=== PATIENT | female | born 1950 | race Caucasian/White ===

== ENCOUNTER → 2017-05-14 | Outpatient (CLI) | payer BC, OTHER ==
[~2017-05-14] MED LIST: ALLER-TEC D 5-1 EACH PO; ALPHA LIPOIC A100 MG PO; ALPHA LIPOIC A600 M1 PO; AMBIEN 5 MG TABL5 M1 PO; AROMASIN25 MG PO; ATROVENT HFA14 GM INH; CELEXA20 MG PO; CENTRUM SILVER1 EAC4 PO; CITRACAL + BON1 EACH PO; CYMBALTA60 MG PO; FISH OIL 1,2001 EAC5 PO; FOLIC ACID1 MG PO; GLUCOSAMINE-CH1 EAC3 PO; HYDROCODONE-AP1 EAC6 PO; IBUPROFEN 800800 M1 PO; NOLVADEX20 MG PO; VALIUM5 MG PO; VITAMIN D1000 UNI1 PO; XANAX 0.5 MG0.5 MG PO; [UNRECOGNIZED DRUG - OTHER]
== END ==
LOC: OCCUP 02-05 00:11 → EDSTATUS 02-05 13:00 → NUC 05:49
DX: M85.89 Other specified disorders of bone density and structure, multiple sites (principal); C50.412 Malignant neoplasm of upper-outer quadrant of left female breast; Z78.0 Asymptomatic menopausal state

== ENCOUNTER → 2018-02-21 | Outpatient (CLI) | payer OTHER | LOC: MRI 11:48 | DX: M65.871 Other synovitis and tenosynovitis, right ankle and foot (principal); R60.0 Localized edema ==

== ENCOUNTER → 2018-05-08 | Outpatient (CLI) | payer OTHER | LOC: RAD 01:39 | DX: C50.412 Malignant neoplasm of upper-outer quadrant of left female breast (principal); M81.0 Age-related osteoporosis without current pathological fracture; M85.89 Other specified disorders of bone density and structure, multiple sites; E28.39 Other primary ovarian failure; Z78.0 Asymptomatic menopausal state; Z17.0 Estrogen receptor positive status [ER+] ==

== ENCOUNTER → 2018-07-09 | Outpatient (CLI) | payer OTHER, SELFPAY ==
[~2018-07-09] VITALS: Ht 165.1 cm; Wt 72.6 kg
[~2018-07-09] MED LIST changes: +BIOTIN1 MG PO; +COQ-10100 MG PO; +D3 DOTS2000 UNIT PO; +FOLTX TABLET1 EAC1 PO; +LYRICA 75 MG CA75 MG PO; +MAGNESIUM500 MG PO; +MEDROLDOSEPACK PO; +MOBIC15 MG PO; +TURMERIC1 GM PO; +XIIDRA1 EACH
[2018-07-09 13:25] VITALS: BP 121/79
--- NOTE | 2018-07-16 10:49 | HPC ---
[facility] [place] [address] PAIN MANAGEMENT CONSULTATION Name: MARIEL SALES Room #: REG [facility] Taras.#: [id number] Admission: 07/09/18 ������������������ Attend Phys: Anoop Kerr DO Discharge: ������������������ Date of : 46 Report #: [id number] THIS REPORT FOR: //name// CC: Ajay Connor DPM DATE OF SERVICE: 07/09/2018 CHIEF COMPLAINT: Right ankle pain. HISTORY OF PRESENT ILLNESS: As you know, the patient is a 67-year-old female with longstanding history of right ankle pain that began in 09/2017. She states she has been treated for various conditions involving the right ankle. She has undergone treatment by 2 different podiatrists. She has had walking boots, CAM boots, medication management and physical therapy, all of which have provided no improvement in symptoms. She does have a history of peripheral neuropathy, though this appears to be related more to a mechanical issue. Her pain is worsened with walking, standing and any type of weightbearing. When she has been more sedentary her pain significantly improved after 2-3 days of being off her feet. Unfortunately, her job requires her to be standing for long periods of time. She works as a caterer. Due to lack of improvement with more conservative treatment options, the patient was referred to our clinic to discuss potential therapies. She has not sought evaluation through Orthopedics in regards to orthopedic surgical options. She does carry the diagnosis of sprain of the talofibular ligament on the right ankle. The patient indicates today her pain is continuous, constant, intermittent in its presentation. She describes the pain as burning, shooting, aching, sharp, stabbing, and tender. She places current pain score at 6/10, daily average of 6/10, worst pain has been is 10/10. The patient states the pain is exacerbated with standing long periods of time and walking long distances, improves with sitting down, rest, relaxation and putting her feet up. She has been referred to our clinic to discuss whether or not there are any interventional treatments available to address right ankle pain. PAST MEDICAL HISTORY: 1. Multiple emotional problems. 2. Degenerative joint disease. 3. Osteoarthritis. 4. History of breast cancer, status post mastectomy. PAST SURGICAL HISTORY: 1. In 2007, lumpectomy. 2. Chemo radiation. 3. Mastectomy with Port-A-Cath placement. [address] [address] PAIN MANAGEMENT CONSULTATION Name: MARIEL SALES Room #: REG Kojo Chanel#: [id number] Admission: 07/09/18 ������������������ Attend Phys: Anoop Kerr DO Discharge: ������������������ Date of : 46 Report #: [id number] 4. Varicose vein surgery. SOCIAL HISTORY: The patient denies tobacco, IV or illicit drug use. Admits to occasional alcohol beverage. She works as a caterer. She is working, not receiving Workmen's Compensation nor is she trying to obtain disability benefits. She is not in litigation in regard to pain. She is unaccompanied today. REVIEW OF SYSTEMS: Positive for weakness, dry eyes, changes in bowel movements, frequent urination, nocturia, breast pain, varicose veins, numbness and tingling sensations, nervousness, depression, cold intolerance, peripheral neuropathy and right ankle pain. All other review of systems negative per 12-point review of systems other than those listed in history of present illness. Pain impact score 68/70 indicating complete interference of daily activities secondary to pain. ALLERGIES: No reported drug allergies. CURRENT MEDICATIONS: Zolpidem 10 mg p.o. at bedtime and diazepam 10 mg t.i.d. IMAGING: There is no imaging available. PHYSICAL EXAMINATION: GENERAL: Well-developed, well-nourished, well-hydrated 67-year-old female appearing her stated age, placing current pain score anywhere from 8-10/10. HEENT: Normocephalic, atraumatic. Pupils equal, round, reactive to light. Extraocular muscles are intact. Sclerae nonicteric without injection. NEUROLOGIC: Cranial nerves 2-12 grossly intact. Speech fluent. The patient deemed a fair historian. LUNGS: Clear, no wheeze, rhonchi or rales. CARDIOVASCULAR: Regular. No appreciable gallop, no rub. ABDOMEN: Soft, nontender. EXTREMITIES: Show no clubbing, no cyanosis, and no edema. MUSCULOSKELETAL: Lower extremity strength appears symmetrical 5/5. Giveaway strength noted with plantar flexion, dorsiflexion of the right foot when compared to left. Eversion and inversion of the foot is met with increased pain on the right lateral portion. Drawer tests are negative bilaterally. There does not appear to be any instability with inversion or eversion of the right ankle when compared to left. There is no tenderness over the Achilles tendon. The distal tactile sensation is reduced slightly in the toes, though there is good capillary refill. ASSESSMENT: 1. Right ankle pain. 2. Right sprain of the talofibular ligament. [facility] [address] [place] [address] PAIN MANAGEMENT CONSULTATION Name: MARIEL SALES Room #: REG ALEN Chanel#: [id number] Admission: 07/09/18 ������������������ Attend Phys: Anoop Kerr DO Discharge: ������������������ Date of : 46 Report #: [id number] 3. Chronic intractable pain. PLAN: 1. Based on today's physical exam and history the patient provided, the description the patient used in regard to pain as well as the inability to ambulate and stand for long periods of time, likely source of the patient's pain is the lateral malleolus. Imaging does show manifestations of anterior distal tibial fibula syndesmotic ligament injury and chronic osseous remodeling and reactive edema along the margins of the distal tibia and fibula. There is no stress fracture or acute ligamentous injuries noted. This was gained from an MRI obtained from the patient 02/21/2018. This does correlate with patient's current findings. We have suggested to the patient that she trialed conservative medication therapy initially with starting a Medrol Dosepak. If this is effective, then symptoms are more likely related to joint issue than to a neuropathic issue. We would recommend a Medrol Dosepak initially. If this is ineffective, then I would recommend follow up with Orthopedic Surgery in regard to surgical options. There is no interventional treatment that would be effective in this area without possibly causing the stabilization of the ligamentous structures in the area, which is noted with a steroid exposure. 2. The patient was provided a prescription of Medrol Dosepak 1 pack to be taken as directed. We wish to see if this will improve the patient's overall pain. If no improvement is noted, this would indicate that she is not steroid responsive and thus options for stabilization will be necessary. Given the length of time the patient has had the symptoms I feel that evaluation from an orthopedic standpoint would be recommended. She has sought evaluation from 2 different podiatrists both of which indicated a different diagnoses and assessment led to fairly significant confusion in the patient's mind and I believe a third independent democrat evaluation would be recommended. I do recommend an orthopedic consultation with a foot and ankle specialist. This could be done at the patient's earliest convenience. 3. In regard to longstanding pain medications, I do not feel that it is necessary for the patient to be on high dose medications of any type nor is there an indication for opioid medication in this case. I recommend that the patient utilize alto-hvf-plaplwh antiinflammatories, either Tylenol or combination of Tylenol and ibuprofen. Interventional treatments again are not indicated in this patient's case. 4. We wish to thank Dr. Connor for the referral of this patient to our clinic. We will keep you apprised of response to the treatment options that may be possible though given current physical exam, interventional treatments are not required. I believe that further evaluation from a third democrat independent physician would be recommended in this patient's case. Certainly, she can follow up with Dr. Connor in regard to this if she wishes. [address] [address] PAIN MANAGEMENT CONSULTATION Name: MÓNICAMARIEL Chanda Room #: REG Kojo Chanel#: [id number] Admission: 07/09/18 ������������������ Attend Phys: Anoop Kerr DO Discharge: ������������������ Date of : 46 Report #: [id number] 5. We will see the patient back in followup visit on an as needed basis. We will keep you apprised of any other changes deemed necessary to treat. ��������������������������������������������� <ELECTRONICALLY SIGNED> ���������������������������������������� By: Anoop Kerr DO ��������������������������������������������� 07/16/18 1049 0817 0914 Anoop Kerr DO /nt
== END ==
LOC: PAIN 07:25
DX: M19.071 Primary osteoarthritis, right ankle and foot (principal); Z85.3 Personal history of malignant neoplasm of breast; Z90.10 Acquired absence of unspecified breast and nipple

== ENCOUNTER 2018-12-11 18:52 | Emergency (ER) | payer OTHER ==
[~2018-12-11] VITALS: Ht 165.1 cm; Wt 70.3 kg
[2018-12-11 19:42] LABS: BASOPHILS 0.7 % (0.0-2.0); EOSINOPHILS 2.7 % (0.0-3.0); HEMATOCRIT 39.2 % (37.0-47.0); LYMPHOCYTES 29.9 % (24.0-44.0); MCH 29.7 pg (26.0-34.0); MCHC 33.1 g/dL (28.0-37.0); MCV 89.8 fL (80.0-100.0); MONOCYTES 10.1 % (1.0-8.0); PLATELET COUNT 247 thou/uL (150-400); POLYS 56.6 % (36.0-66.0); RBC 4.37 mil/uL (4.20-5.00); RDW 13.8 % (10.5-14.5)
[2018-12-11 19:50] LABS: ANION GAP 10 mmol/L (7-16); BUN 16 mg/dL (7-18); CALCIUM 10.7 mg/dL (8.5-10.1); CHLORIDE 99 mmol/L (98-107); CO2 29 mmol/L (21-32); CREATININE 0.8 mg/dL (0.6-1.0); GLUCOSE 83 mg/dL (74-106); POTASSIUM 3.7 mmol/L (3.5-5.1); SODIUM 138 mmol/L (136-145)
[2018-12-11 20:00] LABS: DIRECT BILIRUBIN < 0.1 mg/dL (<0.1-0.3); SGOT 21 U/L (15-37); SGPT 15 U/L (30-65); TOTAL BILIRUBIN 0.4 mg/dL (<0.1-1.0); TROPONIN-I <0.06 ng/mL (<0.06)
[2018-12-11] MEDS ORDERED: INDOMETHACIN 5050 M1 PO (20:31)
[2018-12-12 01:25] VITALS: BP 125/69
--- NOTE | 2018-12-13 12:17 | EKG ---
[place] [address] [employer] [place] [address] ELECTROCARDIOGRAM REPORT Name: MARIEL SALES [facility] [id number] Admission: 12/11/18 Attend Phys: Discharge: 12/12/18 Date of : 46 Report #: [id number] THIS REPORT FOR: //name// [facility] ED Test Date: 2018-12-11 Test Time: 19:34:07 Pat Name: MARIEL SALES Department: Room: Gender: F It Technical Specialist: LRAINING : 1950 Requested By: Lyric Sloan Order Number: [id number] MD: Fermin Ding Measurements Intervals [place] Rate: 81 P: 63 FL: 148 QRS: 15 QRSD: 84 T: 36 QT: 388 QTc: 451 Interpretive Statements Sinus rhythm Probable left atrial enlargement nonspecific ST segment abnormalities Compared to ECG 07/12/2015 10:36:20 ST (T wave) deviation now present Electronically Signed On 12-13-2018 12:17:32 [employer] by Fermin Ding [email or web address] <ELECTRONICALLY SIGNED> By: Fermin Ding MD 12/13/18 1217 193 [id number] Fermin Ding MD /DESTINY
== END 2018-12-12 01:27 | disposition home or self-care (01) ==
LOC: ER 18:52
PROVIDERS: Emergency Medicine
DX: R07.89 Other chest pain (principal); R06.00 Dyspnea, unspecified; Z90.12 Acquired absence of left breast and nipple; Z91.048 Other nonmedicinal substance allergy status

== ENCOUNTER → 2018-12-25 | Outpatient (CLI) | payer OTHER ==
[~2018-12-25] MED LIST changes: +INDOMETHACIN 5050 M1 PO
== END ==
LOC: NUC 07:26
DX: R07.81 Pleurodynia (principal); Z85.3 Personal history of malignant neoplasm of breast

== ENCOUNTER 2019-02-26 03:04 | Emergency (ER) | payer OTHER ==
[~2019-02-26] VITALS: Ht 165.1 cm; Wt 66.2 kg
[2019-02-26 04:02] LABS: ABSOLUTE NEUTROPHILS 4.6 thou/uL (1.4-8.2); BASOPHILS 0.6 % (0.0-2.0); EOSINOPHILS 1.4 % (0.0-3.0); HEMATOCRIT 36.7 % (37.0-47.0); HEMOGLOBIN 12.1 gm/dL (12.0-15.0); LYMPHOCYTES 29.4 % (24.0-44.0); MCH 29.8 pg (26.0-34.0); MCHC 33.1 g/dL (28.0-37.0); MCV 90.2 fL (80.0-100.0); MONOCYTES 10.8 % (1.0-8.0); PLATELET COUNT 204 thou/uL (150-400); POLYS 57.8 % (36.0-66.0); RBC 4.07 mil/uL (4.20-5.00)
[2019-02-26 04:11] LABS: CALCIUM 9.9 mg/dL (8.5-10.1); POTASSIUM 3.7 mmol/L (3.5-5.1)
[2019-02-26 04:17] LABS: ALBUMIN 3.5 g/dL (3.4-5.0); TOTAL BILIRUBIN 0.4 mg/dL (<0.1-1.0); TOTAL PROTEIN 6.8 g/dL (6.4-8.2)
[2019-02-26 05:08] LABS: URINE BILIRUBIN NEGATIVE (Negative); URINE BLOOD 1+ (Negative); URINE CLARITY CLOUDY; URINE COLOR YELLOW; URINE GLUCOSE-RANDOM* NEGATIVE (Negative); URINE KETONES 1+ (Negative); URINE LEUKOCYTES-REFLEX NEGATIVE (Negative); URINE NITRITE-REFLEX NEGATIVE (Negative); URINE PROTEIN (DIPSTICK) NEGATIVE (Negative); URINE UROBILINOGEN 0.2 E.U./dl (0.2-1.0)
[2019-02-26 05:26] LABS: BACTERIA-REFLEX 1-9 Few /HPF (None Seen); CASTS None Seen /LPF (None Seen); MUCUS 0-3 Light strn/LPF (None Seen); SQUAMOUS 0-3 Few /LPF (0-3); URINE RBC 0-2 Rare /HPF (0-2); URINE WBC-REFLEX 0-5 Rare /HPF (0-5)
[2019-02-26 05:27] LABS: AMORPHOUS PHOSPHATES Moderate /LPF (None Seen)
[2019-02-26] MEDS ORDERED: NORCO 5-325 TA1 EAC1 PO (07:40)
[2019-02-26] MEDS ORDERED: NAPROSYN500 M1 PO (07:40)
[2019-02-26 07:57] VITALS: BP 105/68
--- NOTE | 2019-02-27 08:20 | EKG ---
[place] [address] [facility] [place] [address] ELECTROCARDIOGRAM REPORT Name: MARIEL SALES Room #: [facility]P [facility]#: [id number] Admission: 02/26/19 Attend Phys: Discharge: 02/26/19 Date of : 46 Report #: [id number] THIS REPORT FOR: //name// [facility] ED Test Date: 2019-02-26 Test Time: 03:23:08 Pat Name: MARIEL SALES Department: Room: Gender: F [employer] Specialist: : 1950 Requested By: Dave Allred Order Number: [id number] MD: Patel Lozano Measurements Intervals [place] Rate: 84 P: 64 RI: 144 QRS: 28 QRSD: 87 T: 57 QT: 398 QTc: 471 Interpretive Statements Sinus rhythm Probable left atrial enlargement Compared to ECG 12/11/2018 19:34:07 No significant change was found Electronically Signed On 02-27-2019 8:19:24 [employer] by Patel Lozano [email or web address] <ELECTRONICALLY SIGNED> By: Patel Lozano MD, [facility] 02/27/19 0819 0323 0323 Patel Lozano MD, FACC /EPI
== END 2019-02-26 07:58 | disposition home or self-care (01) ==
LOC: ER 03:04
PROVIDERS: Emergency Medicine
DX: N20.0 Calculus of kidney (principal); Z85.3 Personal history of malignant neoplasm of breast; Z90.10 Acquired absence of unspecified breast and nipple; Z91.048 Other nonmedicinal substance allergy status

== ENCOUNTER → 2019-06-17 | Outpatient (CLI) | payer OTHER, SELFPAY ==
[~2019-06-17] MED LIST changes: +NAPROSYN500 M1 PO; +NORCO 5-325 TA1 EAC1 PO
== END ==
LOC: RAD 05-26 09:33
DX: C50.412 Malignant neoplasm of upper-outer quadrant of left female breast (principal); Z17.0 Estrogen receptor positive status [ER+]

== ENCOUNTER → 2019-08-18 | Outpatient (CLI) | payer OTHER, SELFPAY | LOC: ULTRA 12:54 | PROVIDERS: ATTEND Radiology Radiation Oncology | DX: C50.412 Malignant neoplasm of upper-outer quadrant of left female breast (principal); Z17.0 Estrogen receptor positive status [ER+] ==

== ENCOUNTER → 2019-12-08 | Outpatient (CLI) | payer OTHER | LOC: MRI 13:35 | PROVIDERS: ATTEND Internal Medicine | DX: M47.22 Other spondylosis with radiculopathy, cervical region (principal); M48.02 Spinal stenosis, cervical region; M54.2 Cervicalgia ==

== ENCOUNTER → 2020-04-05 | Outpatient (CLI) | payer OTHER | LOC: BC 09:03 | PROVIDERS: ATTEND Internal Medicine | DX: Z12.31 Encounter for screening mammogram for malignant neoplasm of breast (principal) ==

== ENCOUNTER 2020-05-04 17:19 | Emergency (ER) | payer OTHER ==
[~2020-05-04] VITALS: Ht 165.1 cm; Wt 71.2 kg
[2020-05-04 18:01] LABS: ABSOLUTE NEUTROPHILS 4.2 thou/uL (1.4-8.2); BASOPHILS 0.4 % (0.0-2.0); EOSINOPHILS 2.8 % (0.0-3.0); HEMOGLOBIN 13.1 gm/dL (12.0-15.0); LYMPHOCYTES 19.3 % (24.0-44.0); MCH 29.4 pg (26.0-34.0); MCHC 32.7 g/dL (28.0-37.0); MCV 89.8 fL (80.0-100.0); MONOCYTES 11.9 % (1.0-8.0); PLATELET COUNT 243 thou/uL (150-400); POLYS 65.6 % (36.0-66.0); RBC 4.46 mil/uL (4.20-5.00); RDW 14.4 % (10.5-14.5); WBC 6.4 thou/uL (4.0-11.0)
[2020-05-04 18:11] LABS: ANION GAP 4 mmol/L (7-16); BUN 23 mg/dL (7-18); CALCIUM 9.7 mg/dL (8.5-10.1); CHLORIDE 102 mmol/L (98-107); CO2 30 mmol/L (21-32); CREATININE 0.9 mg/dL (0.6-1.0); GLUCOSE 101 mg/dL (74-106); SODIUM 136 mmol/L (136-145)
[2020-05-04 18:18] LABS: TROPONIN-I <0.06 ng/mL (<0.06)
[2020-05-04 19:00] LABS: URINE BILIRUBIN NEGATIVE (Negative); URINE BLOOD NEGATIVE (Negative); URINE CLARITY CLEAR; URINE COLOR YELLOW; URINE GLUCOSE-RANDOM* NEGATIVE (Negative); URINE KETONES NEGATIVE (Negative); URINE LEUKOCYTES-REFLEX NEGATIVE (Negative); URINE NITRITE-REFLEX NEGATIVE (Negative); URINE PROTEIN (DIPSTICK) NEGATIVE (Negative); URINE UROBILINOGEN 0.2 E.U./dl (0.2-1.0)
[2020-05-04 20:22] VITALS: BP 126/87
--- NOTE | 2020-05-05 07:40 | EKG ---
[place] [address] [employer] [place] [address] ELECTROCARDIOGRAM REPORT Name: MARIEL SALES Room #: [facility]#: [id number] Admission: 05/04/20 Attend Phys: Discharge: 05/04/20 Date of : 46 Report #: [id number] [facility] ED Test Date: 2020-05-04 Test Time: 17:24:38 Pat Name: MARIEL SALES Department: Room: Gender: F Rating Officer: LESLEY : 1950 Requested By: Walker Spring Order Number: [id number] MD: Domingo Vázquez Measurements Intervals [place] Rate: 94 P: 69 CO: 135 QRS: 27 QRSD: 92 T: 50 QT: 334 QTc: 418 Interpretive Statements Sinus rhythm Left atrial enlargement Probable left ventricular hypertrophy Anterior Q waves, possibly due to LVH Compared to ECG 02/26/2019 03:23:08 Left ventricular hypertrophy now present Q waves now present Electronically Signed On 05-05-2020 7:40:34 CDT by Domingo Vázquez [email or web address] <ELECTRONICALLY SIGNED> By: Domingo Vázquez MD, [facility] 05/05/20 0740 1724 172 Domingo Vázquez MD, FACC /EPI
== END 2020-05-04 20:23 | disposition home or self-care (01) ==
LOC: ER 17:19
PROVIDERS: Nurse Practitioner
DX: R07.89 Other chest pain (principal); Z79.899 Other long term (current) drug therapy; Z91.048 Other nonmedicinal substance allergy status